=== PATIENT | male | born 2000 | race African-American/Black ===

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

== ENCOUNTER 2021-06-03 17:37 | Emergency (ER) | payer MEDICAID, OTHER ==
[~2021-06-03] VITALS: Ht 177.8 cm; Wt 76.2 kg
[~2021-06-03 17:37] MED LIST changes: +SULF1TAB23 PO
[2021-06-03 17:50] VITALS: BP 130/67
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
[2021-06-03] MEDS ORDERED: CYCL10TA19 PO (19:29)
[2021-06-03] MEDS ORDERED: NAPR-514 PO (19:29)
== END 2021-06-03 19:35 | disposition home or self-care (01) ==
LOC: ER 17:37
DX: S13.9XXA Sprain of joints and ligaments of unspecified parts of neck, initial encounter (principal); M54.50 Low back pain, unspecified; M54.6 Pain in thoracic spine; V49.49XA Driver injured in collision with other motor vehicles in traffic accident, initial encounter; Y93.89 Activity, other specified; Y92.488 Other paved roadways as the place of occurrence of the external cause; Y99.8 Other external cause status
CPT/HCPCS: 72040; 72072; 72100; 99284